=== PATIENT | male | born 1990 | race Caucasian/White ===

== ENCOUNTER → 2016-11-28 | Outpatient (CLI) | payer OTHER ==
[~2016-11-28] MED LIST: CLON1TAB3 PO; CPXI
--- NOTE | 2016-11-28 14:58 | DIAGNOSTIC IMAGING REPORT ---
Brain MRI WITH AND WITHOUT CONTRAST HISTORY: Multiple sclerosis. Follow-up. TECHNIQUE: Multiplanar multisequence MRI of the brain was performed both before and after the intravenous administration of contrast. COMPARISON STUDY: Brain MRI 01/11/2016. FINDINGS: No areas of restricted diffusion to suggest acute infarction. 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 The ventricles are normal in size. There again noted multiple scattered white matter plaques seen within the supratentorial and infratentorial brain. These are not significantly changed in size, number, or distribution. There is no mass, hematoma, midline shift. No abnormal enhancement. IMPRESSION: No change in multiple scattered white matter plaques seen within the supratentorial and infratentorial brain consistent with the patient's history of multiple sclerosis. No abnormal enhancement to suggest active demyelination. Electronically signed by: Esvin Dominguez M.D. 11/28/2016 2:57 PM Dictated Date/Time: 11/28/2016 2:51 PM
== END | disposition home or self-care (01) ==
LOC: C.OPENMRI 13:34
PROVIDERS: ATTEND Psychiatry & Neurology Neurology
DX: G35 Multiple sclerosis (principal)